=== PATIENT | male | born 1970 | race Caucasian/White ===

== ENCOUNTER 2017-09-25 17:29 | Emergency (ER) | payer OTHER ==
[2017-09-25 17:53] VITALS: RESP 18
--- NOTE | 2017-09-25 18:22 | ED ---
General Adult HPI - General Chief complaint: Extremity Injury, Lower Stated complaint: rt calf pain Time Seen by Provider: 09/25/17 18:03 Source: patient, RN notes reviewed Mode of arrival: ambulatory Limitations: no limitations - History of Present Illness Initial comments: 47-year-old male presents to the emergency department for a chief complaint of right calf pain 2 hours. Patient was stepping down from a step in his garage when he felt a sudden pain in his right calf. Patient states it is painful to walk on at this point. Patient states it feels a spasm that will not let up. Patient states he wanted to make sure it wasn't a clot. Patient denies any history of clots. Patient denies falling on the right lower extremity. Patient denies any other injuries or pain elsewhere besides the right calf. No pain in the right foot ankle knee or hip. Patient has no other complaints at this time including shortness of breath, chest pain, abdominal pain, nausea or vomiting, headache, or visual changes. - Related Data Previous Rx's Medication Instructions Recorded Ibuprofen [Motrin] 600 mg PO Q8HR PRN #20 tab 09/25/17 Allergies Allergy/AdvReac Type Severity Reaction Status Date / Time No Known Allergies Allergy Verified 09/25/17 17:53 Review of Systems ROS Statement: Those systems with pertinent positive or pertinent negative responses have been documented in the HPI. ROS Other: All systems not noted in ROS Statement are negative. Past Medical History Past Medical History: No Reported History History of Any Multi-Drug Resistant Organisms: None Reported Past Surgical History: Appendectomy Additional Past Surgical History / Comment(s): arm and hand surg pilondial cyst Smoking Status: Current every day smoker Past Alcohol Use History: None Reported Past Drug Use History: None Reported, Marijuana General Exam Limitations: no limitations General appearance: alert, in no apparent distress Head exam: Present: atraumatic, normocephalic, normal inspection Eye exam: Present: normal appearance ENT exam: Present: normal exam, mucous membranes moist Neck exam: Present: normal inspection, full ROM. Absent: tenderness, meningismus, lymphadenopathy, thyromegaly Respiratory exam: Present: normal lung sounds bilaterally. Absent: respiratory distress, wheezes, rales, rhonchi, stridor Cardiovascular Exam: Present: regular rate, normal rhythm, normal heart sounds. Absent: systolic murmur, diastolic murmur, rubs, gallop, clicks Extremities exam: Present: full ROM (Limited extension of the right ankle due to pain in the right calf. Full flexion. Full range motion of the right knee.) , tenderness (Tenderness to the right calf. There is a palpable bump within the right lower calf. No tenderness to the foot ankle or knee.), normal capillary refill (Refill less than 2 seconds and pedal pulse 2+), other ( Sensation intact in the right lower extremity. Normal Mao test.). Absent: joint swelling (No swelling or ecchymosis noted in the right calf.) Course Vital Signs 09/25/17 17:49 Temperature 98.4 F Pulse Rate 103 H Respiratory 18 Rate Blood Pressure 136/87 O2 Sat by Pulse 97 Oximetry Procedures - Procedures Initial comment: Neurovascular intact before splint application Indication: Possible tendon rupture of the right gastrocnemius or soleus Type: Posterior short leg Wounds: no abrasions or lacerations underneath splint Neurovascular status: patient has sensation and movement of digits extending outside the splint, there is no cyanosis, capillary refill < 2 seconds Follow-up: patient given number for orthopedics and instructed to phone to make an appointment. Patient aware he can return to the Emergency Department if any difficulties. Medical Decision Making - Medical Decision Making 47-year-old male says to the emergency department for a chief complaint of right lower extremity pain 2 hours. Patient was stepping down from a step in his crotch when he felt a sudden sharp pain in his right calf. Patient describes the pain as a cramping pain at this time. Patient states it is painful to walk on. Patient cannot bear full weight on the calf. On exam no swelling or ecchymosis noted of the right calf. Neurovascular intact. Patient has tenderness in the right calf and there is a palpable raised area noted in the right calf. Mao test normal. Ultrasound is negative for DVT. Tib- fib x-ray negative as well. Patient does have a possible tendon rupture or muscle tear. He was splinted in a posterior OCL. He will follow up with orthopedics in one to 2 days. He has crutches at home that he will use. He will take Motrin and Tylenol for pain. Disposition Clinical Impression: Leg pain Disposition: HOME SELF-CARE Condition: Good Instructions: Tendon Rupture (ED), Leg Pain (ED) Additional Instructions: Please take Motrin and Tylenol for pain. Please rest ice and elevate the leg. Use crutches for ambulation. Return to the emergency department if you have any worsening symptoms. Otherwise follow up with pediatrics in one to 2 days. Prescriptions: Ibuprofen [Motrin] 600 mg PO Q8HR PRN #20 tab PRN Reason: Pain Is patient prescribed a controlled substance at d/c from ED?: No Referrals: Randal Tolbert MD [STAFF PHYSICIAN] - 1-2 days Time of Disposition: 20:34
--- NOTE | 2017-09-25 18:41 | XR ---
EXAMINATION TYPE: XR tibia fibula RT DATE OF EXAM: 09/25/2017 COMPARISON: NONE HISTORY: Pain TECHNIQUE: 2 view right tibia and fibula FINDINGS: No acute fractures are evident. Joint spaces are unremarkable. IMPRESSION: 1. Normal right tibia and fibula
--- NOTE | 2017-09-25 20:18 | US ---
EXAMINATION TYPE: US venous doppler duplex LE RT DATE OF EXAM: 09/25/2017 7:27 PM COMPARISON: NONE CLINICAL HISTORY: Pain. Patient felt a "pop" right calf earlier today, cramping since SIDE PERFORMED: Right TECHNIQUE: The lower extremity deep venous system is examined utilizing real time linear array sonog emanuel with graded compression, doppler sonography and color-flow sonography. VESSELS IMAGED: External Iliac Vein (EIV) Common Femoral Vein Deep Femoral Vein Greater Saphenous Vein * Femoral Vein Popliteal Vein Small Saphenous Vein * Proximal Calf Veins (* superficial vessels) Right Leg: No evidence of DVT IMPRESSION: 1. Right lower extremity deep venous ultrasound negative for deep venous thrombosis. 2. No suspicious hematoma identified.
[2017-09-25 20:52] VITALS: BP 130/86; PULSE 81; TEMP 96.5
== END 2017-09-25 20:52 | disposition home or self-care (01) ==
LOC: EC 17:29
DX: M79.604 Pain in right leg (principal); F17.200 Nicotine dependence, unspecified, uncomplicated
CPT/HCPCS: 29515; 99284